=== PATIENT | female | born 1990 | race Caucasian/White ===

== ENCOUNTER 2022-11-17 22:02 | Observation (INO) | payer OTHER, SELFPAY ==
[2022-11-17] VITALS (7 sets, daily range): BP systolic 105–110; BP diastolic 64–68; PULSE 94–101; RESP 18; TEMP 36.3; BMI 28.8
--- NOTE | 2022-11-17 23:58 | PC.NURSE ---
Dr. Roca notified of PT arriving to unit with c/o falling on her left side at about 2100. PT states she feels some tenderness on the left side of her abdomen which she rates a 1 on a scale of 1-10, not tender to touch. PT does not feel contractions, no contractions per toco, and none per palpation. RH positive per PT. PT denies bleeding and leaking of any kind. Reported reactive tracing, PT marking movement, vitals WNL. Orders to monitor PT until 0100, if FHT reactive PT to be discharged.
[2022-11-18] VITALS: BP 105/69; PULSE 93
[2022-11-18 00:15] VITALS: BP 108/67; PULSE 98
[2022-11-18 00:30] VITALS: BP 109/69; PULSE 94
[2022-11-18 00:45] VITALS: BP 110/69; PULSE 92
--- NOTE | 2022-11-18 00:48 | OBADM ---
This patient, Jade Sanchez, admitted to the OB room OB Post 116 for observation. Patient/family oriented to hospital policies and general routines including ID bracelet, bed and alarms, visiting hours, pain management, procedures, bathroom and other care routines, personal items, smoking policy, room service/diet, and visiting hours. Patient/Family are encouraged to report perceived risks to care and to ask questions if they do not understand what they are told or what they should do.
--- NOTE | 2022-11-21 09:01 | PM.OBTRLD ---
OB - Triage/Final Diagnosis Visit Information Comments/Additional reasons for admission: I have assessed the risk for this patient, Jade Sanchez, and determined that she would benefit from observation care. Final Diagnosis (1) Status post fall: Code(s): Z91.81 - History of falling Status: Acute
== END 2022-11-18 01:33 | disposition home or self-care (01) ==
PROVIDERS: Admitting Provider Obstetrics & Gynecology; Visit Provider Obstetrics & Gynecology
DX: Z04.3 Encounter for examination and observation following other accident (principal); Z3A.29 29 weeks gestation of pregnancy
CPT/HCPCS: G0378; G0379

== ENCOUNTER 2022-11-23 16:20 | Outpatient (CLI) | payer OTHER, SELFPAY ==
--- NOTE | ~2022-11-23 | XR_ITS ---
EXAMINATION: XR chest 2V DATE: 11/23/2022 16:42 INDICATION: Respiratory tract congestion and cough. TECHNIQUE: Frontal and lateral views of the chest were obtained. COMPARISON: None. FINDINGS: There is no pneumonia, pleural effusion, or pneumothorax. The heart size is normal. IMPRESSION: 1. No acute cardiopulmonary disease. Reviewed, dictated and finalized at location A. [facility]
== END 2022-11-23 16:21 | disposition home or self-care (01) ==
PROVIDERS: Visit Provider Obstetrics & Gynecology
DX: R05.1 Acute cough (principal)
CPT/HCPCS: 71046

== ENCOUNTER 2022-12-14 17:47 | Outpatient (RCR) | payer OTHER, SELFPAY ==
[2022-12-14 18:37] VITALS: BP 107/71; PULSE 87
== END 2023-02-22 18:28 | disposition home or self-care (01) ==
LOC: ANHOBOP 17:47
PROVIDERS: Visit Provider Obstetrics & Gynecology
DX: O24.419 Gestational diabetes mellitus in pregnancy, unspecified control (principal); Z3A.33 33 weeks gestation of pregnancy
CPT/HCPCS: 59025

== ENCOUNTER 2023-01-08 18:36 | Outpatient (CLI) | payer OTHER, SELFPAY ==
[2023-01-08 19:14] LABS: Basophils Percent Auto 0.3 % (0.2-1.2); Eosinophils Absolute Auto 0.1 K/mm3 (0-0.3); Hematocrit 34.9 % (37.0-47.0); Hemoglobin 11.5 g/dL (12.0-15.0); Immature Granulocyte Absolute 0.05 K/mm3 (0.00-0.031); Immature Granulocyte Percent A 0.4 % (0-0.5); Lymphocytes Percent Auto 18.5 % (18.3-44.2); Mean Corpuscular Hemoglobin 29.7 pg (26-34); Mean Corpuscular Volume 90.2 fl (80-100); Mean Platelet Volume 9.7 fl (7.4-10.4); Monocytes Absolute Auto 0.7 K/mm3 (0.1-0.6); Monocytes Percent Auto 5.5 % (2.6-8.5); Neutrophils Absolute Auto 8.8 K/mm3 (1.3-6.7); Neutrophils Percent Auto 74.3 % (45.5-73.1); Platelet Count Result 291 k/mm3 (150-375); Red Blood Count 3.87 M/mm3 (4.2-5.4); White Blood Count 11.9 K/mm3 (4.5-10.0)
[2023-01-08 19:15] VITALS: BP 103/72; PULSE 111
[2023-01-08 19:25] LABS: Alanine Aminotransferase 16 U/L (6-35); Albumin Level 3.5 g/dL (3.5-5.1); Alkaline Phosphatase 180 U/L (38-126); Anion Gap 9 mmol/L (8-16); Aspartate Amino Transferase 19 U/L (14-36); Bilirubin,Total 0.4 mg/dL (0.2-1.3); Blood Urea Nitrogen 4 mg/dL (7-17); Calcium 8.8 mg/dL (8.4-10.2); Carbon Dioxide 21 mmol/L (22-30); Chloride 104 mmol/L (98-107); Estimated Glomerular Filt Rate > 60; Glucose 118 mg/dL (65-110); Potassium 3.7 mmol/L (3.4-5.0); Sodium 134 mmol/L (137-145)
[2023-01-08 19:30] VITALS: BP 108/79; PULSE 88
[2023-01-08 19:45] VITALS: BP 120/80; PULSE 81
[2023-01-08 20:00] VITALS: BP 112/72; PULSE 85
[2023-01-08 20:15] VITALS: BP 108/70; PULSE 86
[2023-01-08 20:30] VITALS: BP 115/72; PULSE 79
[2023-01-08 22:04] LABS: Appearance Urine Clear (Clear); Bilirubin Urine Negative (Negative); Blood Urine Negative (Negative); Color Urine Yellow (Yellow); Glucose Urine UA Negative (Negative); Ketones Urine Negative (Negative); Leukocyte Esterase Ur Negative LEU/UL (NEGATIVE); Nitrate Urine Negative (Negative); Protein Urine Negative (Negative); Specific Grav Ur 1.008 (1.001-1.035)
[2023-01-08 22:12] LABS: Creatinine Urine 66.5 mg/dL; Total Protein Urine Random 18 mg/dL; Ur Ttl Prot Creatinine Ratio 0.27 mg/mg (0-0.20)
[2023-01-08 22:13] LABS: Add Urine Microscopic? NO
[2023-01-08 22:33] VITALS: BMI 29.0
--- NOTE | 2023-01-08 22:34 | OBADM ---
This patient, Jade Sanchez, admitted to the OB room OB Post 115 for observation. Patient/family oriented to hospital policies and general routines including ID bracelet, bed and alarms, visiting hours, pain management, procedures, bathroom and other care routines, personal items, smoking policy, room service/diet, and visiting hours. Patient/Family are encouraged to report perceived risks to care and to ask questions if they do not understand what they are told or what they should do.
== END 2023-01-08 22:50 | disposition home or self-care (01) ==
LOC: ANHOBPP 22:47 → ANHOBOP 01-11 08:17 → ANHOBPP 01-11 08:17
PROVIDERS: Advanced Practice Midwife; Visit Provider Obstetrics & Gynecology
DX: O26.899 Other specified pregnancy related conditions, unspecified trimester (principal); R60.9 Edema, unspecified
CPT/HCPCS: 36415; 80053; 81003; 82570; 84156; 84550; 85025; 87086; 99199

== ENCOUNTER 2023-01-25 05:32 | Inpatient (IN) | payer OTHER, SELFPAY ==
[2023-01-25] VITALS (59 sets, daily range): BP systolic 84–151; BP diastolic 36–108; PULSE 48–125; RESP 12–18; TEMP 36.1–37; O2SAT 92–100; BMI 29.5
--- NOTE | 2023-01-25 06:05 | LDADM ---
This patient, Jade Sanchez, was admitted to Labor/Delivery/Recovery 120 on 01/25/23 at 05:32. Plans for labor, pain management and were discussed with patient. Patient/family oriented to hospital policies and general routines including ID bracelet, bed and alarms, visiting hours, pain management, procedures, bathroom and other care routines, personal items, smoking policy, room service/diet and guest tray routines, infant security routines, and visiting hours. Patient/Family are encouraged to report perceived risks to care and to ask questions if they do not understand what they are told or what they should do. See OBIX for further documentation.
[2023-01-25 06:07] LABS: Basophils Percent Auto 0.2 % (0.2-1.2); Eosinophils Absolute Auto 0.1 K/mm3 (0-0.3); Eosinophils Percent Auto 1.1 % (0-4.4); Hematocrit 33.4 % (37.0-47.0); Hemoglobin 10.8 g/dL (12.0-15.0); Immature Granulocyte Absolute 0.06 K/mm3 (0.00-0.031); Immature Granulocyte Percent A 0.6 % (0-0.5); Lymphocytes Absolute Auto 2.02 K/mm3 (0.9-3.2); Lymphocytes Percent Auto 19.1 % (18.3-44.2); Mean Corpuscular HGB Conc 32.3 g/dl (32-36); Mean Corpuscular Hemoglobin 28.8 pg (26-34); Mean Corpuscular Volume 89.1 fl (80-100); Mean Platelet Volume 9.9 fl (7.4-10.4); Monocytes Absolute Auto 0.8 K/mm3 (0.1-0.6); Monocytes Percent Auto 7.4 % (2.6-8.5); Neutrophils Absolute Auto 7.6 K/mm3 (1.3-6.7); Neutrophils Percent Auto 71.6 % (45.5-73.1); Platelet Count Result 253 k/mm3 (150-375); Red Blood Count 3.75 M/mm3 (4.2-5.4); Red Cell Distribution Width 13.4 % (11.5-14.5); White Blood Count 10.6 K/mm3 (4.5-10.0)
[2023-01-25] MEDS: LACTATED RINGERS 1,000 ML 125 ML IV CONT (06:19)
--- NOTE | 2023-01-25 06:55 | PC.NURSE ---
Talked to Dr. Aguilar regarding patient eating at 0300. Orders to postpone C/S at 0900. Dr. Roca made aware of schedule change.
--- NOTE | 2023-01-25 07:12 | WPDANESEPPF ---
Anes - Initial Pre Proc Eval Procedure: Operation Date: 01/25/23 07:30 Proposed Procedures p Primary Section - Brenda Roca MD Date/Time: 01/25/23 07:12 Surgeon: Brenda Roca MD Pre Op Diagnosis: C/S Patient Data Age: 32 Gender: F Height: 1.68 m Weight: 83 kg Last Vital Signs Pulse 72 01/25/23 06:46 BP 119/76 01/25/23 06:46 O2 Del Method Room Air 01/25/23 06:05 Allergies Allergy/AdvReac Type Severity Reaction Status Date / Time No Known Allergies Allergy Unverified 01/25/23 06:03 Home Medications Medication Instructions Recorded Confirmed Type docosahexaenoic acid 200 mg 1 mg PO DAILY 06/23/22 01/25/23 History capsule ( DHA) valacyclovir 500 mg tablet 500 mg PO DAILY 11/17/22 01/25/23 History Laboratory Tests 01/25/23 05:59 WBC 10.6 H K/mm3 (4.5-10.0) RBC 3.75 L M/mm3 (4.2-5.4) Hgb 10.8 L g/dL (12.0-15.0) Hct 33.4 L % (37.0-47.0) MCV 89.1 fl (80-100) MCH 28.8 pg (26-34) MCHC 32.3 g/dl (32-36) RDW 13.4 % (11.5-14.5) Plt Count 253 k/mm3 (150-375) MPV 9.9 fl (7.4-10.4) Immature Gran % (Auto) 0.6 H % (0-0.5) Neut % (Auto) 71.6 % (45.5-73.1) Lymph % (Auto) 19.1 % (18.3-44.2) [place] % (Auto) 7.4 % (2.6-8.5) Eos % (Auto) 1.1 % (0-4.4) Baso % (Auto) 0.2 % (0.2-1.2) Lymph # (Auto) 2.02 K/mm3 (0.9-3.2) [place] # (Auto) 0.8 H K/mm3 (0.1-0.6) Eos # (Auto) 0.1 K/mm3 (0-0.3) Baso # (Auto) 0.0 K/mm3 (0.0-0.1) Abs Immat Gran (auto) 0.06 H K/mm3 (0.00-0.031) Absolute Neuts (auto) 7.6 H K/mm3 (1.3-6.7) Absolute Nucleated RBC 0.0 K/mm3 (0.0-0.012) Nucleated RBC % 0.0 % (0.0-0.2) RPR Pending Patient hx anesthesia problems: none Family hx anesthesia problems: none Results Review: All pre-operative results and documents have been reviewed as part of the pre-operative evaluation. [facility] Past Medical History Medical History (Updated 11/21/22 @ 09:01 by Brenda Roca MD) Multiple sclerosis Family History Family History (Updated 01/20/23 @ 15:19 by Connie Crowe RN) Father Vitiligo Cancer Went to agricultural equipment salesperson and had a tumor removed from neck and follow up with chemotherapy. Thyroid disease Grandparent Heart disease Parkinsons Cerebrovascular accident Mother Graves disease Social History Social History (Updated 06/23/22 @ 14:25 by Malgorzata Esteban CMA) Smoking status: Current every day smoker Tobacco type: cigarettes Alcohol intake: former Substance use: current Last use: 01/19/23 Spiritual care concerns: No Anes - Eval Final PreProcedure Day of Procedure 01/25/23 07:12 Patient weight: overweight Heart: regular rate and rhythm Lungs: clear to auscultation and normal air movement Airway: Mallampati scale class II Neurological: alert and oriented Last oral intake: >/= 8 hours ASA classification: III Emergent: no Anesthetic plan: proceed Anesthesia type and monitoring: regional spinal Results Review: All pre-operative results and documents have been reviewed as part of the pre-operative evaluation. Informed Consent: The patient's anesthetic plan and its attendant risks and benefits were discussed with the patient/family/POA. Questions were solicited and answers provided to the satisfaction of the patient/family/POA.
--- NOTE | 2023-01-25 07:13 | PM.IMHP ---
H&P: HPI History of Present Illness Date/Time: 01/25/23 07:13 Chief Complaint: Zelalem is a 32yo G1 at 39.1 for primary CS. She has genital herpes and had an outbreak about 3 weeks ago and decided that she wanted to avoid the risks of vaginal delivery with herpes, however small. She also has multiple sclerosis which has been quiescent during . Her has been otherwise uncomplicated. Review of Systems Review of Systems: All systems reviewed & are unremarkable except as noted in HPI and below PMFSH Past Medical History Medical History (Updated 01/25/23 @ 07:19 by Brenda Roca MD) Multiple sclerosis Family History Family History (Updated 01/20/23 @ 15:19 by Connie Crowe RN) Father Vitiligo Cancer Went to learning center instructor and had a tumor removed from neck and follow up with chemotherapy. Thyroid disease Grandparent Heart disease Parkinsons Cerebrovascular accident Mother Graves disease Social History Social History (Updated 06/23/22 @ 14:25 by Malgorzata Esteban CMA) Smoking status: Current every day smoker Tobacco type: cigarettes Alcohol intake: former Substance use: current Last use: 01/19/23 Spiritual care concerns: No Meds Home Medications and Allergies Home Medications Medication Instructions Recorded Confirmed Type docosahexaenoic acid 200 mg 1 mg PO DAILY 06/23/22 01/25/23 History capsule ( DHA) valacyclovir 500 mg tablet 500 mg PO DAILY 11/17/22 01/25/23 History Allergies Allergy/AdvReac Type Severity Reaction Status Date / Time No Known Allergies Allergy Unverified 01/25/23 06:03 Vital Signs Vital Signs - 24 hr 01/25/23 05:50 01/25/23 06:01 01/25/23 06:16 Pulse Rate 95 98 85 Blood Pressure 109/76 100/82 92/71 L Oxygen Delivery 01/25/23 06:31 01/25/23 06:46 01/25/23 06:05 Pulse Rate 76 72 Blood Pressure 108/77 119/76 Oxygen Delivery Room Air Exam Const: General: no acute distress Resp: Effort & Inspection: normal respiratory effort Auscultation: clear to auscultation bilaterally Cardio: Rate: regular rate Rhythm: regular rhythm GI: GI Palp: Yes Soft to palpation Extrem: General: normal to inspection H&P: Results Labs Labs: Short CBC 01/25/23 Range/Units 05:59 WBC 10.6 H (4.5-10.0) K/mm3 Hgb 10.8 L (12.0-15.0) g/dL Hct 33.4 L (37.0-47.0) % Plt Count 253 (150-375) k/mm3 Assessment and Plan Assessment and plan (1) Genital herpes affecting : Code(s): O98.319 - Other infections with a predominantly sexual mode of transmission complicating , unspecified trimester; A60.09 - Herpesviral infection of other urogenital tract Status: Acute (2) Multiple sclerosis: Code(s): G35 - Multiple sclerosis Status: Acute Plan Consented for primary CS for genital herpes. Discussed RBA, questions answered. Will proceed. Following with neuro for MS FHT category 1.
--- NOTE | 2023-01-25 07:20 | WPDHPUPDATE1 ---
History and Physical Update Update Date/Time: 01/25/23 07:20 History and Physical has been reviewed, including an updated exam of the patient. There are NO changes in the patient's condition. Risks, benefits, and alternatives have been discussed and questions answered. Patient agrees to proceed with procedure.
[2023-01-25] MEDS: ceFAZolin 2 GM/D5W 50 ML 2 GM/50 ML BAG IVPB (07:28)
[2023-01-25 07:40] LABS: Amphetamine Screen Urine Negative (Negative); Barbiturate Screen Urine Negative (Negative); Benzodiazepines Screen Urine Negative (Negative); Cannabinoid Screen Urine Positive (Negative); Cocaine Screen Urine Negative (Negative); Methadone Screen Urine Negative (Negative); Opiate Screen Urine Negative (Negative); Phencyclidine Screen Urine Negative (Negative)
[2023-01-25] MEDS: KETOROLAC 30 MG/ML VIAL (*BKC) IV PUSH (08:10)
--- NOTE | 2023-01-25 08:39 | P.PCNOB_ITS ---
OB - Delivery Note Procedure Delivery date: 01/25/23 Procedure: Procedures Operation Date: 01/25/23 07:30 <No data on this case meets the specified criteria> primary low transverse section Events: Other (genital herpes) Route of delivery: Prior to decision for section, ACOG/SMFM labor guidelines were considered and discussed with the patient and staff. Decision made to proceed with the section.: Yes Specimen: Yes (placenta) Quantitative Blood Loss (ml): 450 Anesthesia type: Spinal Disposition: Floor Complications: none Narrative: Pre op Dx: IUP 39.1, genital herpes with recent outbreak Post op Dx: same The patient was taken to the OR and received spinal anesthesia. She was placed in dorsal supine position with left lateral tilt. SCDs and lawton were placed. She was prepped and draped in the normal sterile fashion. A Pfannensteil skin incision was made and carried through to the underlying layer of fascia. The fascia was incised in the midline and then extended laterally using Bey scissors. The muscles were in the midline and the peritoneum was entered bluntly. The peritoneal incision was extended inferiorly and superiorly with care to avoid the bladder. The bladder blade was then inserted, the vesicouterine peritoneum was grasped, incised with Metzenbaum scissors, and a bladder flap created. The bladder blade was reinserted. A low transverse uterine incision was made with a scalpel and extended bluntly. AROM was performed and fluid was noted to be clear. The head was delivered, followed by the remainder of the baby. The baby's oropharynx was suctioned. After 30 seconds, the cord was clamped and cut and the infant was handed off. Cord blood was obtained and the placenta was then removed manually. The uterus was exteriorized. A moist lap sponge was used to curette the endometrium. The uterine incision was then closed with one layer of 0-Vicryl in a running, locking fashion. Good hemostasis was noted. The posterior cul de sac was irrigated with normal saline and cleared of all clot and debris. The uterus was returned to the abdomen. Both lateral gutters were then irrigated. The rectus muscles were inspected and found to be hemostatic. The fascia was reapproximated using 0-Vicryl in running fashion. The subcutaneous tissue was irrigated with normal saline and made hemostatic with Bovie electrocautery. The subcutaneous tissue was reapproximated with a layer of running 2-0 plain gut. The skin was then closed with 4-0 Vicryl in a subcuticular fashion. Steri str ips and a bandage were applied. The uterus was evacuated. The patient tolerated the procedure very well. All counts were correct. She was taken to the recovery room in good condition. [place] Baby Date of : 01/25/23 Time of : 08:00 Weeks of gestation at delivery: 39 Infant gender: Male Weight (pounds): 7 Weight (ounces): 15 presentation: vertex Placenta delivery description: Manual Removal Cord Vessel Description: 3 Vessels and Delayed Cord Clamping score one minute: 8 score five minutes: 9
[2023-01-25] MEDS: OXYTOCIN 30 UNITS/NS 500 ML 30 UNITS/500 ML BAG 125 UNITS IV CONT (09:38)
--- NOTE | 2023-01-25 13:57 | PC.NURSE ---
[id number] Introductions were made, then consulted with patient to assess needs related to . Mother is demonstrating to the right breast using cross cradle. Mother states she will be only for a week or two, then will be going back on her MS medication that she states cannot be used with . Mother voiced understanding of information and will call if there is a request for assistance. Reported to the primary RN.
[2023-01-25] MEDS: DEXTROSE 5%/0.45% SOD CHL 1,000 ML 125 ML IV CONT (14:01)
[2023-01-25] MEDS: valACYclovir HCL 500 MG TABLET PO (14:01)
--- NOTE | 2023-01-25 14:29 | OBPPTRN ---
1102-Patient transferred to post room #281 via stretcher. Support person present. Oriented to unit, room, information board, rooming in, admission packet and security measures. Patient verbalizes understanding.
[2023-01-25] MEDS: DOCUSATE SODIUM 100 MG CAPSULE PO (17:53)
[2023-01-26 00:13] VITALS: BP 112/67; PULSE 85; RESP 18; TEMP 36.6; O2SAT 97
[2023-01-26] MEDS: KETOROLAC 30 MG/ML VIAL (*BKC) IV PUSH (00:41)
[2023-01-26 03:45] VITALS: BP 114/67; PULSE 67; RESP 18; TEMP 36.6; O2SAT 98
[2023-01-26 05:00] LABS: Basophils Percent Auto 0.3 % (0.2-1.2); Eosinophils Absolute Auto 0.1 K/mm3 (0-0.3); Eosinophils Percent Auto 0.7 % (0-4.4); Hematocrit 29.4 % (37.0-47.0); Hemoglobin 9.5 g/dL (12.0-15.0); Immature Granulocyte Absolute 0.08 K/mm3 (0.00-0.031); Immature Granulocyte Percent A 0.5 % (0-0.5); Lymphocytes Absolute Auto 2.83 K/mm3 (0.9-3.2); Lymphocytes Percent Auto 18.9 % (18.3-44.2); Mean Corpuscular HGB Conc 32.3 g/dl (32-36); Mean Corpuscular Hemoglobin 29.3 pg (26-34); Mean Corpuscular Volume 90.7 fl (80-100); Mean Platelet Volume 10.6 fl (7.4-10.4); Monocytes Absolute Auto 1.1 K/mm3 (0.1-0.6); Monocytes Percent Auto 7.6 % (2.6-8.5); Neutrophils Absolute Auto 10.8 K/mm3 (1.3-6.7); Platelet Count Result 232 k/mm3 (150-375); Red Blood Count 3.24 M/mm3 (4.2-5.4); Red Cell Distribution Width 13.5 % (11.5-14.5)
[2023-01-26 07:46] LABS: Rapid Plasma Reagin Non-Reactive (NonReactive)
[2023-01-26 08:06] VITALS: BP 127/71; PULSE 73; RESP 17; O2SAT 100
--- NOTE | 2023-01-26 08:06 | WPDANLDNPN2 ---
Anes-Prog Note L&D-Neuraxial Date/Time: 01/26/23 08:06 Opiod-related complaints: none Patient feedback: Patient satisfied with post-operative pain management.
--- NOTE | 2023-01-26 08:10 | WPDANLDPN2 ---
Anes-Prog Note L&D Date/Time: 01/26/23 08:10 Neuro status: Neuro function grossly intact. Cardiovascular status: normal Respiratory status: normal Airway patency: baseline Mental status: baseline Post-Op hydration status: normal Vital Signs: Last Vital Signs Temp 36.6 C 01/26/23 03:45 Pulse 67 01/26/23 03:45 Resp 18 01/26/23 03:45 BP 114/67 01/26/23 03:45 Pulse Ox 98 01/26/23 03:45 O2 Del Method Room Air 01/26/23 03:45 Pain score (VAS): 0 I/O: Intake & Output 01/25/23 01/26/23 01/26/23 23:59 07:59 15:59 Intake Total 1353 2000 Output Total 1300 1850 Balance 53 150 Post-procedural complaints: none Patient feedback: Patient satisfied with anesthetic care.
--- NOTE | 2023-01-26 08:20 | PM.OBPNVD ---
OB - PN: Subj Subjective Date/time seen: 01/26/23 08:20 Patient comments: no complaints and pain well controlled baby status: doing well [place] feeding status: exclusively bottle feeding Narrative: POD 1 from primary CS. Doing well. Normal lochia. Eating, ambulating, lawton out. OB - PN: Obj Data Labs 01/26/23 03:41 Labs: Laboratory Results - last 24 hr 01/25/23 01/26/23 05:59 03:41 WBC 15.0 H RBC 3.24 L Hgb 9.5 L Hct 29.4 L MCV 90.7 MCH 29.3 MCHC 32.3 RDW 13.5 Plt Count 232 MPV 10.6 H Immature Gran % (Auto) 0.5 Neut % (Auto) 72.0 Lymph % (Auto) 18.9 [place] % (Auto) 7.6 Eos % (Auto) 0.7 Baso % (Auto) 0.3 Lymph # (Auto) 2.83 [place] # (Auto) 1.1 H Eos # (Auto) 0.1 Baso # (Auto) 0.0 Abs Immat Gran (auto) 0.08 H Absolute Neuts (auto) 10.8 H Absolute Nucleated RBC 0.0 Nucleated RBC % 0.0 RPR Non-reactive OB - PN A/P Plan day: 1 Plan: routine care Comments: anemia- IV iron x1 doing well. Time Spent With Patient Time: Total time spent is greater than 50% in coordination of care (as documented) at patient's floor/unit and/or counseling patient: Exam Narrative: NAD abdomen soft, appropriately tender, incision bandaged Extremities nontender with 1+ edema
[2023-01-26] MEDS: POLYSACCHARIDE IRON COMPLEX 150 MG CAPSULE PO ×2 (09:13→15:15)
[2023-01-26] MEDS: MULTIVIT/MIN/PREN/FOL AC/IRON TABLET 1 TAB PO (09:14)
[2023-01-26] MEDS: valACYclovir HCL 500 MG TABLET PO (09:14)
[2023-01-26] MEDS: DOCUSATE SODIUM 100 MG CAPSULE PO ×2 (09:14→15:15)
[2023-01-26] MEDS: IBUPROFEN 600 MG TABLET PO ×3 (09:15→22:44)
[2023-01-26] MEDS: HYDROcodone/acetaminophen (*CRX) 5-325 MG TABLET 1 TAB PO ×2 (09:17→15:15)
[2023-01-26] MEDS: IRON SUCROSE COMPLEX 200 MG in SODIUM CHLORIDE 0.9% IV 50 ML 120 MG IVPB (09:50)
--- NOTE | 2023-01-26 15:48 | PC.NURSE ---
Pt. out on pass to visit baby at [facility]
--- NOTE | 2023-01-26 22:24 | PC.NURSE ---
Patient returned from [facility] to [facility] to see infant.
[2023-01-26 22:30] VITALS: BP 118/69; PULSE 90; RESP 20; TEMP 36.7
[2023-01-26] MEDS: HYDROcodone/acetaminophen (*CRX) 10-325 MG TABLET 1 TAB PO (22:44)
[2023-01-27] MEDS: IBUPROFEN 600 MG TABLET PO (05:18)
[2023-01-27] MEDS: HYDROcodone/acetaminophen (*CRX) 10-325 MG TABLET 1 TAB PO ×2 (05:20→09:12)
[2023-01-27 07:02] VITALS: BP 122/75; PULSE 60; RESP 16; TEMP 36.7; O2SAT 99
--- NOTE | 2023-01-27 07:37 | PM.OBPNVD ---
OB - PN: Subj Subjective Date/time seen: 01/27/23 07:37 Patient comments: no complaints and pain well controlled baby status: NICU (transferred for oral lesions, concern for HSV) [place] feeding status: breast and bottle feeding OB - PN: Obj Data Labs 01/26/23 03:41 Labs: Laboratory Results - last 24 hr 01/25/23 05:59 RPR Non-reactive OB - PN A/P Plan day: 2 Plan: discharge home Time Spent With Patient Time: Total time spent is greater than 50% in coordination of care (as documented) at patient's floor/unit and/or counseling patient: Exam Narrative: NAD abdomen soft, appropriately tender, incision CDI Extremities nontender with 1+ edema
--- NOTE | 2023-01-27 07:42 | PM.OBDSVD ---
DS: Admitting Diagnosis Discharge Date 01/27/23 Admitting Diagnosis IUP 39w, genital herpes DS: Discharge Diagnosis Discharge Diagnosis (1) Genital herpes affecting : Code(s): O98.319 - Other infections with a predominantly sexual mode of transmission complicating , unspecified trimester; A60.09 - Herpesviral infection of other urogenital tract Status: Acute (2) delivery delivered: Code(s): O82 - Encounter for delivery without indication Status: Acute OB - DS: Summary Hospital Course Hospital Course: Zelalem was admitted for a primary CS for genital herpes. Her course was uncomplicated. Baby [facility] to [facility] for oral lesions concerning for HSV and so she was discharged on POD 2 to be with baby. OB Procedures : Ultrasound OB Procedures Intrapartum: OB Procedures: : None Peripartum Data Infant Delivery Method: Section Procedures: Procedures Operation Date: 01/25/23 07:30 Actual Procedure Side Surgeon p Section Not Applicable Brenda Roca MD complications: none Status at Discharge Functional status at discharge: independent ambulation Time Spent with Patient Time attestation: Total time spent providing and/or coordinating discharge services: Exam Narrative: NAD abdomen soft, appropriately tender, incision CDI DS: Data Data Completed and Pending Labs on day of discharge: Labs from last 24 hours 01/25/23 05:59 RPR Non-reactive Discharge Plan Discharge Attending physician on discharge: Brenda Roca Discharging Clinician: Brenda Roca Anticipated Discharge Date/Time: 01/27/23 07:39 Patient Disposition: Home, Self-Care Activity: may shower, may drive after 2 weeks and pelvic rest Diet: regular Patient Instructions: Antibiotic Form Stand Alone Forms: General Discharge Information Follow-up/Referrals: Brenda Roca MD [Physician] - 1 Week Discharge Medications: New oxycodone-acetaminophen [Percocet] 5-325 mg tablet 1 tablet PO Q6H PRN (Reason: pain) Qty: 30 0RF docusate sodium 100 mg Capsule 100 mg PO BID PRN (Reason: constipation) Qty: 60 0RF ibuprofen 600 mg Tablet 600 mg PO Q6H PRN (Reason: Cramping) Qty: 60 0RF Continued DHA 200 mg capsule 1 mg PO DAILY valacyclovir 500 mg tablet 500 mg PO DAILY Date of admission: 01/25/23 05:32 Primary Care Provider: PHYSICIAN,[employer] Admitting Provider: Brenda Roca Attending physician on admission: Brenda Roca Condition: Stable
[2023-01-27] MEDS: valACYclovir HCL 500 MG TABLET PO (07:52)
[2023-01-27] MEDS: DOCUSATE SODIUM 100 MG CAPSULE PO (07:52)
[2023-01-27] MEDS: MULTIVIT/MIN/PREN/FOL AC/IRON TABLET 1 TAB PO (07:52)
[2023-01-27] MEDS: POLYSACCHARIDE IRON COMPLEX 150 MG CAPSULE PO (07:52)
--- NOTE | 2023-01-27 08:00 | PC.NURSE ---
Patient to view the discharge video Mother & Baby Care, The First Two Weeks online. Patient was given the opportunity and encouraged to ask questions. Patient verbalized understanding of information shared and has been given the mother/baby guide for home reference.
--- NOTE | 2023-01-27 08:39 | PC.NURSE ---
On 01/27/23, the student, Sharonda Zapata, provided care and completed [facility] documentation on this patient. I have reviewed the student's documentation and agree with the findings.
== END 2023-01-27 09:15 | disposition home or self-care (01) | DRG 540 ==
LOC: ANHLDR 05:36 → ANHOB2 11:07
PROVIDERS: Admitting Provider Obstetrics & Gynecology; Visit Provider Obstetrics & Gynecology
PROC: 10D00Z1 Extraction of Products of Conception, Low, Open Approach (ICD-10-PCS; CPT 59514; principal; 2023-01-25 07:30)
DX: O98.32 Other infections with a predominantly sexual mode of transmission complicating childbirth (principal); Z37.0 Single live birth; Z3A.39 39 weeks gestation of pregnancy; A60.09 Herpesviral infection of other urogenital tract
CPT/HCPCS: 36415; 80307; 85025; 86592; 86850; 86900; 86901; A9270; J0131; J0690; J1756; J1885; J2274; J2370; J2590; J7120

== ENCOUNTER 2023-04-18 13:05 | Emergency (ER) | payer OTHER, SELFPAY ==
--- NOTE | ~2023-04-18 | CT_ITS ---
EXAMINATION: CT abdomen pelvis w con DATE: 04/18/2023 14:17 INDICATION: Abdominal pain TECHNIQUE: Computed tomography (CT) of the abdomen and pelvis was performed with 100 cc Omnipaque 350 intravenous contrast. The dose-length product was 480.15 mGy-cm. Automated exposure control and iter ative reconstruction technique were employed. COMPARISON: No prior studies for comparison. FINDINGS: Lung bases are unremarkable. Heart size normal. No significant pleural or pericardial effus ion. No significant vascular abnormality. No lymphadenopathy. Nonobstructive bowel pattern. The liver , spleen, pancreas, adrenal glands and kidneys are unremarkable. No free air or free fluid. Gallbladd er is present. Focal fatty infiltration of the liver at the falciform ligament. No acute osseous abno rmality. IMPRESSION: 1. No acute abdominal abnormality. Reviewed, dictated and finalized at location A.
[2023-04-18 13:15] VITALS: BP 116/82; PULSE 75; RESP 18; TEMP 36.4; O2SAT 100
[2023-04-18 13:37] LABS: Basophils Percent Auto 0.4 % (0.2-1.2); Eosinophils Absolute Auto 0.2 K/mm3 (0-0.3); Eosinophils Percent Auto 2.6 % (0-4.4); Hematocrit 42.8 % (37.0-47.0); Hemoglobin 14.2 g/dL (12.0-15.0); Immature Granulocyte Absolute 0.02 K/mm3 (0.00-0.031); Immature Granulocyte Percent A 0.2 % (0-0.5); Lymphocytes Absolute Auto 2.59 K/mm3 (0.9-3.2); Lymphocytes Percent Auto 27.9 % (18.3-44.2); Mean Corpuscular HGB Conc 33.2 g/dl (32-36); Mean Corpuscular Hemoglobin 30.1 pg (26-34); Mean Corpuscular Volume 90.9 fl (80-100); Mean Platelet Volume 8.8 fl (7.4-10.4); Monocytes Absolute Auto 0.7 K/mm3 (0.1-0.6); Monocytes Percent Auto 7.3 % (2.6-8.5); Neutrophils Absolute Auto 5.7 K/mm3 (1.3-6.7); Neutrophils Percent Auto 61.6 % (45.5-73.1); Platelet Count Result 383 k/mm3 (150-375); Red Blood Count 4.71 M/mm3 (4.2-5.4); Red Cell Distribution Width 13.8 % (11.5-14.5); White Blood Count 9.3 K/mm3 (4.5-10.0)
--- NOTE | 2023-04-18 13:42 | ED.ABDPAIN ---
HPI - Abdominal Pain General Chief Complaint: Nausea/Vomiting/Diarrhea Stated Complaint: abd pain/back pain Time Seen by Provider: 04/18/23 13:23 Source: patient Mode of arrival: ambulatory Limitations: no limitations History of Present Illness HPI narrative: 32-year-old female history of MS 3 months presents today with complaints of epigastric pain radiating around to her back for 4 to 5 days. Patient states she had grilled cheese and a hamburger then started with abdominal pain vomiting and diarrhea shortly after. Initially she had felt better but has continued with pain for the last 4 to 5 days. Able to tolerate fluids and oatmeal. When she tried to eat anything heavier she did end up with increasing pain. Denies any fevers, body aches, chills. Currently not on any medications for the MS. Patient currently is not breast-feeding either. Related Data Home Medications Medication Instructions Recorded Confirmed docosahexaenoic acid 200 mg 1 mg PO DAILY 06/23/22 01/25/23 capsule ( DHA) valacyclovir 500 mg tablet 500 mg PO DAILY 11/17/22 01/25/23 Allergies Allergy/AdvReac Type Severity Reaction Status Date / Time No Known Allergies Allergy Verified 04/18/23 13:06 Review of Systems Review of Systems: All systems reviewed & are unremarkable except as noted in HPI and below ENT: Reports as per HPI Cardiovascular: Cardiovascular: Reports as per HPI Respiratory: Respiratory: Reports as per HPI Gastrointestinal: Gastrointestinal: Reports as per HPI Musculoskeletal: Musculoskeletal: Reports as per HPI Integumentary/Breasts: Skin/Breast: Reports as per HPI Neurologic: Reports as per HPI Psychiatric: Psychiatric: Reports as per HPI PMFSH Past Medical History Medical History (Updated 04/18/23 @ 15:16 by Berenice Benton APRN) Multiple sclerosis Family History Family History (Updated 01/20/23 @ 15:19 by Connie Crowe RN) Father Vitiligo Cancer Went to tank shop supervisor and had a tumor removed from neck and follow up with chemotherapy. Thyroid disease Grandparent Heart disease Parkinsons Cerebrovascular accident Mother Graves disease Social History Social History (Updated 06/23/22 @ 14:25 by Malgorzata Esteban CMA) Smoking status: Current every day smoker Tobacco type: cigarettes Alcohol intake: former Substance use: current Last use: 01/19/23 Spiritual care concerns: No Exam Const: General: cooperative, healthy appearing, comfortable, no acute distress and well developed Orientation/consciousness: patient oriented x3 HENMT: Head: normal to inspection Eyes: General: appearance normal, both eyes and all related structures Resp: Effort & Inspection: normal respiratory effort and able to speak in complete sentences Auscultation: clear to auscultation bilaterally Cardio: Rate: regular rate Rhythm: regular rhythm Heart sounds: S1 normal heart sound present and S2 normal heart sound present GI: Inspection: normal to inspection GI Palp: Yes abdominal tenderness (upper abdomen), Yes Soft to palpation, Yes No hepatosplenomegaly present and Yes Other GI palpation findings present (+ levine sign) Neuro: General: patient oriented x3 Course Course Emergency Course: Patient with noted improvement after Toradol injection. Currently without nausea vomiting or pain. Discussed labs and imaging. Plan discharge home with follow-up with primary care provider to return with any new or worsening concerns. Patient in agreement with plan of care. Vital Signs Vital signs: Vital Signs Temperature 97.5 F L 04/18/23 13:15 Pulse Rate 75 04/18/23 13:15 Respiratory Rate 18 04/18/23 13:15 Blood Pressure 116/82 04/18/23 13:15 Pulse Oximetry 100 04/18/23 13:15 Oxygen Delivery Room Air 04/18/23 13:15 Temperature 97.5 F L 04/18/23 13:15 Pulse Rate 74 04/18/23 15:29 Respiratory Rate 18 04/18/23 15:29 Blood Pressure 111/75
[2023-04-18 13:47] LABS: Alanine Aminotransferase 35 U/L (6-35); Albumin Level 4.9 g/dL (3.5-5.1); Alkaline Phosphatase 74 U/L (38-126); Anion Gap 12 mmol/L (8-16); Aspartate Amino Transferase 25 U/L (14-36); Bilirubin,Total 0.5 mg/dL (0.2-1.3); Blood Urea Nitrogen 9 mg/dL (7-17); Calcium 9.3 mg/dL (8.4-10.2); Carbon Dioxide 25 mmol/L (22-30); Chloride 101 mmol/L (98-107); Estimated CRCL calculation 127 ml/min; Estimated Glomerular Filt Rate > 60; Glucose 105 mg/dL (65-110); Lipase 59 U/L (23-300); Potassium 3.5 mmol/L (3.4-5.0); Sodium 138 mmol/L (137-145)
[2023-04-18] MEDS: PANTOPRAZOLE SODIUM IV 40 MG VIAL IV PUSH (13:49)
[2023-04-18] MEDS: KETOROLAC 30 MG/ML VIAL (*BKC) IV PUSH (13:49)
[2023-04-18] MEDS: ONDANSETRON INJ 4 MG/2 ML VIAL IV PUSH (13:49)
[2023-04-18] MEDS: SODIUM CHLORIDE 0.9% IV 2,000 ML 999 ML IV CONT (13:50)
[2023-04-18 14:13] LABS: Appearance Urine Clear (Clear); Bilirubin Urine Negative (Negative); Blood Urine Negative (Negative); Color Urine Yellow (Yellow); Glucose Urine UA Negative (Negative); Ketones Urine Negative (Negative); Leukocyte Esterase Ur Negative LEU/UL (Negative); Nitrate Urine Negative (Negative); Protein Urine Negative (Negative); Specific Grav Ur 1.002 (1.001-1.035); Urobilinogen Urine 0.2 mg/dL (<2.0); pH Urine 6.5 (5.0-9.0)
[2023-04-18 14:22] LABS: Add Urine Microscopic? NO
[2023-04-18 15:29] VITALS: BP 111/75; PULSE 74; RESP 18; O2SAT 100
== END 2023-04-18 15:29 | disposition home or self-care (01) ==
PROVIDERS: Emergency Medicine; Emergency Provider Nurse Practitioner Family
DX: R10.13 Epigastric pain (principal); G35 Multiple sclerosis; F17.210 Nicotine dependence, cigarettes, uncomplicated
CPT/HCPCS: 36415; 74177; 80053; 81003; 81025; 83690; 85025; 96361; 96374; 96375; 99284; C9113; J1885; J2405; J7030; Q9967

== ENCOUNTER 2023-06-04 18:41 | Emergency (ER) | payer OTHER, SELFPAY ==
[2023-06-04 19:04] VITALS: BP 104/77; PULSE 92; RESP 18; TEMP 36.4; O2SAT 100
[2023-06-04 20:37] VITALS: BP 106/70; PULSE 82; RESP 15; O2SAT 99
--- NOTE | 2023-06-04 21:13 | ED.GENADULT ---
HPI - General Adult General Chief complaint: Unspecified Stated complaint: multiple sclerosis Time Seen by Provider: 06/04/23 20:21 Source: patient Mode of arrival: ambulatory Limitations: no limitations History of Present Illness HPI narrative: This is a 32-year-old female with PMH of MS who presents to the ED with multiple complaints. Patient reports she was diagnosed with MS about 5 years ago and had her baby about 4 months ago. She reports ever since having her baby she has been having increased electric shock pains and intermittent weakness of the left lower extremity. The symptoms she has been having for quite some time however she is starting to have some new symptoms including pain with extraocular movements. Denies loss of vision or double vision. she does note a little bit of a headache associated with this. Denies any LOC or head injuries. She states she is able to ambulate but has occasional falls at home. Denies any further complaints. Related Data Home Medications Medication Instructions Recorded Confirmed docosahexaenoic acid 200 mg 1 mg PO DAILY 06/23/22 01/25/23 capsule ( DHA) valacyclovir 500 mg tablet 500 mg PO DAILY 11/17/22 01/25/23 Allergies Allergy/AdvReac Type Severity Reaction Status Date / Time No Known Allergies Allergy Verified 06/04/23 18:42 Review of Systems Review of Systems: All systems as dictated in [facility] Past Medical History Medical History (Updated 06/04/23 @ 22:36 by Eusebio Quezada PA-C) Multiple sclerosis Family History Family History (Updated 01/20/23 @ 15:19 by Connie Crowe RN) Father Vitiligo Cancer Went to belt tender and had a tumor removed from neck and follow up with chemotherapy. Thyroid disease Grandparent Heart disease Parkinsons Cerebrovascular accident Mother Graves disease Social History Social History (Updated 06/23/22 @ 14:25 by Malgorzata Esteban CMA) Smoking status: Current every day smoker Tobacco type: cigarettes Alcohol intake: former Substance use: current Last use: 01/19/23 Spiritual care concerns: No Exam Narrative: GENERAL: Well-appearing, well-nourished, and in no acute distress. HEAD: Normocephalic, atraumatic. EYES: PERRLA. She has pain with multiple extraocular movements. Vision intact. ENT: Nares clear, no rhinorrhea or epistaxis. Mucous membranes moist. Oropharynx without tonsillar hypertrophy exudate or other lesions. NECK: Supple. No adenopathy or masses. CHEST: No respiratory distress. Clear to auscultation. No wheezes rales or rhonchi HEART: Regular rate and rhythm. No murmur heard. Normal peripheral pulses. ABDOMEN: Soft, nontender, nondistended, normal active bowel sounds. MSK: Normal range of motion. No edema. SKIN: Warm, dry, no rash. NEURO: Alert and oriented x3. 5 out of 5 sensation in the upper and lower extremities. 4/5 strength with plantarflexion of the left foot. Otherwise strength is fully intact throughout the extremities. No other focal deficits. PSYCH: Normal mood and affect. Course Course Emergency Course: Consult Dr. Ospina: She agrees with the plan for 1000 mg of Solu-Medrol for this potential MS flare. Recommends giving 500 tonight and 500 in the morning. Agrees the patient should probably get an MRI so admission is recommended. Discussed the plan with the patient, however she does not want to be admitted to the hospital. She states that she has to get home to take care of her 4-month-old child and that there is no one else who can help with this tonight. Vital Signs Vital signs: Vital Signs Temperature 97.6 F 06/04/23 19:04 Pulse Rate 92 06/04/23 19:04 Respiratory Rate 18 06/04/23 19:04 Blood Pressure 104/77 06/04/23 19:04 Pulse Oximetry 100 06/04/23 19:04 Oxygen Delivery Room Air 06/04/23 19:04 Temperature 97.6 F 06/04/23 19:04 Pulse Rate 86 06/04/23 22:48 Respiratory Rate 16 06/04/23 22:48
[2023-06-04 21:54] LABS: Basophils Percent Auto 0.4 % (0.2-1.2); Eosinophils Absolute Auto 0.3 K/mm3 (0-0.3); Eosinophils Percent Auto 2.8 % (0-4.4); Hematocrit 39.8 % (37.0-47.0); Hemoglobin 13.2 g/dL (12.0-15.0); Immature Granulocyte Absolute 0.03 K/mm3 (0.00-0.031); Immature Granulocyte Percent A 0.3 % (0-0.5); Lymphocytes Percent Auto 29.9 % (18.3-44.2); Mean Corpuscular HGB Conc 33.2 g/dl (32-36); Mean Corpuscular Hemoglobin 30.3 pg (26-34); Mean Corpuscular Volume 91.5 fl (80-100); Mean Platelet Volume 9.2 fl (7.4-10.4); Monocytes Absolute Auto 0.7 K/mm3 (0.1-0.6); Monocytes Percent Auto 6.8 % (2.6-8.5); Neutrophils Absolute Auto 6.4 K/mm3 (1.3-6.7); Neutrophils Percent Auto 59.8 % (45.5-73.1); Platelet Count Result 344 k/mm3 (150-375); Red Blood Count 4.35 M/mm3 (4.2-5.4); White Blood Count 10.7 K/mm3 (4.5-10.0)
[2023-06-04 22:10] LABS: Alanine Aminotransferase 28 U/L (6-35); Albumin Level 4.5 g/dL (3.5-5.1); Alkaline Phosphatase 87 U/L (38-126); Anion Gap 7 mmol/L (8-16); Aspartate Amino Transferase 34 U/L (14-36); Bilirubin,Total 0.3 mg/dL (0.2-1.3); Blood Urea Nitrogen 18 mg/dL (7-17); Carbon Dioxide 27 mmol/L (22-30); Chloride 106 mmol/L (98-107); Estimated CRCL calculation 108 ml/min; Estimated Glomerular Filt Rate > 60; Glucose 87 mg/dL (65-110); Potassium 3.7 mmol/L (3.4-5.0); Sodium 140 mmol/L (137-145)
[2023-06-04] MEDS: predniSONE 20 MG TABLET 60 MG PO ×2 (22:44)
[2023-06-04 22:48] VITALS: BP 106/58; PULSE 86; RESP 16; O2SAT 98
== END 2023-06-04 22:49 | disposition home or self-care (01) ==
PROVIDERS: Emergency Provider Physician Assistant
DX: G35 Multiple sclerosis (principal); F17.210 Nicotine dependence, cigarettes, uncomplicated
CPT/HCPCS: 36415; 80053; 85025; 99283; J7512

== ENCOUNTER 2023-06-10 11:34 | Emergency (ER) | payer OTHER, SELFPAY ==
[2023-06-10 11:53] VITALS: BP 120/85; PULSE 94; RESP 16; TEMP 36.4; O2SAT 100
--- NOTE | 2023-06-10 15:38 | PC.NURSE ---
once to the room for assessment pt decided that since we do not provide MRI in the ED they did not want to be seen anymore. vitals WNL and the provider never saw the pt. pt stated they wanted to go to a bigger hospital to receive the MRI. offered pt a referral and resources.
== END 2023-06-10 15:55 | disposition left against medical advice (07) ==
DX: G35 Multiple sclerosis (principal)
CPT/HCPCS: 99199

== ENCOUNTER 2023-06-17 09:36 | Observation (INO) | payer OTHER, SELFPAY ==
[2023-06-17] VITALS (7 sets, daily range): BP systolic 96–106; BP diastolic 58–80; PULSE 75–100; RESP 16–20; TEMP 36.8–36.9; O2SAT 97–100; BMI 25.0
--- NOTE | ~2023-06-17 | MR_ITS ---
MRI of the cervical spine Clinical History: Multiple sclerosis Technique: Axial T2-weighted and gradient images, and sagittal T1-weighted, T2-weighted, and STIR seema ges were acquired. Following intravenous administration of 14 cc MultiHance gadolinium, T1-weighted f at-sat imaging was performed in the axial and sagittal planes. Findings: There is no fracture or subluxation of the cervical spine. Vertebral bodies maintain normal height and alignment. No bone marrow signal abnormality seen. No disc bulge or herniation seen at any cervical level. There is no spinal canal stenosis, cord compr ession, or neural foraminal narrowing at any cervical level. There are several amorphous T2 hyperintense intramedullary spinal cord lesions, most notably at the l eft side of the cord at C4, more centrally in the cord at C5-C6, and in the right side of the cord at C6. No abnormal postcontrast enhancement identified. Paravertebral soft tissues are unremarkable. Impression: At least 3 hyperintense intramedullary spinal cord lesions, as detailed above, consistent with demyel inating lesions of multiple sclerosis. No enhancing lesion identified. Reviewed, dictated and finalized at location M. Impression: At least 3 hyperintense intramedullary spinal cord lesions, as detailed above, consistent with demyelinating lesions of multiple sclerosis. No enhancing lesio n identified.
--- NOTE | ~2023-06-17 | MR_ITS ---
MRI of the thoracic spine Clinical History: Multiple sclerosis Technique: Axial T2-weighted and gradient images, and sagittal T1-weighted, T2-weighted, and STIR seema ges were acquired. Following intravenous administration of 14 cc MultiHance gadolinium, T1-weighted f at-sat imaging was performed in the axial and sagittal planes. Findings: There is no fracture or subluxation of the thoracic spine. Vertebral bodies maintain normal height and alignment. No bone marrow signal abnormality seen. There is no disc bulge or herniation at any thoracic level. No spinal canal stenosis or cord compress ion identified. No epidural mass or collection seen. No definite signal abnormality seen in the thoracic spinal cord. No abnormal postcontrast enhancement identified. Paravertebral soft tissues are unremarkable. Impression: Unremarkable exam. Reviewed, dictated and finalized at [facility]. Impression: Unremarkable exam.
--- NOTE | ~2023-06-17 | MR_ITS ---
MRI of the brain Clinical History: Multiple sclerosis Technique: Axial and sagittal T1-weighted images were acquired. These were followed by axial T2-weigh lashell, diffusion weighted, gradient, and FLAIR images. Following intravenous administration of 14 cc Mu ltiHance gadolinium, T1-weighted fat-sat imaging was performed in the axial, coronal, and sagittal pl anes. Findings: There is no acute infarct, intracranial hemorrhage, or mass lesion. There are multiple smal l focal FLAIR hyperintense lesions in the periventricular white matter, several which demonstrate rad ial orientation. Ventricles and subarachnoid spaces are unremarkable. Orbits are unremarkable. Paranasal sinuses and m astoid air cells are clear. Major intracranial flow voids are intact. Sagittal midline structures are intact. No abnormal postcontrast enhancement identified. IMPRESSION: Multiple small FLAIR hyperintense white matter lesions, as detailed above, consistent with demyelinat ing lesions of multiple sclerosis. No active/enhancing plaque identified. Reviewed, dictated and finalized at location . IMPRESSION: Multiple small FLAIR hyperintense white matter lesions, as detailed above, cons istent with demyelinating lesions of multiple sclerosis. No active/enhancing pl aque identified.
--- NOTE | 2023-06-17 12:36 | ED.GENADULT ---
HPI - General Adult General Chief complaint: Unspecified Stated complaint: MS relapse Time Seen by Provider: 06/17/23 12:18 History of Present Illness HPI narrative: Patient is a 32-year-old female with a history of MS presenting with concerns for MS flare. Patient states that she has been having issues with follow-up with her neurologist at [facility]. States that she had a baby approximately 4 months ago and since that time she has had intermittent but worsening sensory symptoms in her extremities. States that it stated with a numb left heel. States that there were no other parts of both of her feet that go numb and she experiences electric shocklike sensations. States this also happens in her hands. States that she has had a lot of pain in her left eye and now her vision in this eye is affected by a hazy filmlike quality. States that she was seen here a couple of weeks ago and started on steroids. Admission was recommended but patient could not find other childcare so she had to go home for her son. She denies any recent infectious symptoms. No other complaints. Related Data Home Medications Medication Instructions Recorded Confirmed valacyclovir 500 mg tablet 500 mg PO DAILY 11/17/22 06/17/23 sertraline 25 mg tablet 25 mg PO DAILY 06/17/23 06/17/23 Allergies Allergy/AdvReac Type Severity Reaction Status Date / Time No Known Allergies Allergy Verified 06/10/23 11:55 Review of Systems Review of Systems: All systems reviewed & are unremarkable except as noted in HPI and below PMFSH Past Medical History Medical History Multiple sclerosis Surgical History Surgical History History of Family History Family History Father Vitiligo Cancer Went to component design engineer and had a tumor removed from neck and follow up with chemotherapy. Thyroid disease Grandparent Heart disease Parkinsons Cerebrovascular accident Mother Graves disease Social History Social History Social History: Currently lives alone with child. Significant other stays with them frequently. Surrogate decision maker: Rojas Lazcano (partner). Years smoked: 22 Smoking status: Current every day smoker Tobacco type: cigarettes Alcohol intake: current Drinks per week: 1 Substance use: current Substance use type: marijuana Last use: 01/19/23 Lack of Transportation: No Lack of Food: Never True Current Housing: I Have Housing Concerned About Future Housing: No Difficulty Paying Gas/Electric Bills: No Difficulty Paying for Meds: No Currently Unemployed: No Education: Associate Degree Difficulty w/ Childcare or Family Care: No Spiritual care concerns: No Exam Narrative: GENERAL: Well-appearing and in no acute distress. Pleasant and cooperative HEAD: Normocephalic, atraumatic. EYES: PERRLA and EOMI. ENT: Mucous membranes moist. NECK: Supple. CHEST: Clear to auscultation. No respiratory distress. HEART: Regular rate and rhythm ABDOMEN: Soft, nondistended EXTREMITIES: Normal range of motion. No edema. SKIN: Warm, dry, no rash. NEURO: Sensation is grossly intact, 5 out of 5 strength in all extremities, pain with EOMI PSYCH: Normal mood and affect. Course Vital Signs Vital signs: Vital Signs Temperature 98.4 F 06/17/23 09:39 Pulse Rate 100 06/17/23 09:39 Respiratory Rate 20 06/17/23 09:39 Blood Pressure 104/80 06/17/23 09:39 Pulse Oximetry 100 06/17/23 09:39 Oxygen Delivery Room Air 06/17/23 09:39 Temperature 97.3 F L 06/18/23 14:01 Pulse Rate 73 06/18/23 14:01 Respiratory Rate 16 06/18/23 14:01 Blood Pressure 102/57 L 06/18/23 14:01 Pulse Oximetry 99 06/18/23 14:01 Oxygen Delivery Room Air 06/18/23 08:00 Medical Decision M
[2023-06-17 12:56] LABS: Basophils Absolute Auto 0.1 K/mm3 (0.0-0.1); Basophils Percent Auto 0.5 % (0.2-1.2); Eosinophils Absolute Auto 0.3 K/mm3 (0-0.3); Eosinophils Percent Auto 2.5 % (0-4.4); Hemoglobin 13.4 g/dL (12.0-15.0); Immature Granulocyte Absolute 0.03 K/mm3 (0.00-0.031); Immature Granulocyte Percent A 0.3 % (0-0.5); Lymphocytes Absolute Auto 2.61 K/mm3 (0.9-3.2); Lymphocytes Percent Auto 25.8 % (18.3-44.2); Mean Corpuscular HGB Conc 32.7 g/dl (32-36); Mean Corpuscular Hemoglobin 30.6 pg (26-34); Mean Corpuscular Volume 93.6 fl (80-100); Mean Platelet Volume 9.2 fl (7.4-10.4); Monocytes Absolute Auto 0.7 K/mm3 (0.1-0.6); Monocytes Percent Auto 6.9 % (2.6-8.5); Neutrophils Absolute Auto 6.5 K/mm3 (1.3-6.7); Platelet Count Result 333 k/mm3 (150-375); Red Blood Count 4.38 M/mm3 (4.2-5.4); Red Cell Distribution Width 13.1 % (11.5-14.5); White Blood Count 10.1 K/mm3 (4.5-10.0)
[2023-06-17 13:05] LABS: Alanine Aminotransferase 25 U/L (6-35); Albumin Level 4.7 g/dL (3.5-5.1); Alkaline Phosphatase 71 U/L (38-126); Anion Gap 7 mmol/L (8-16); Aspartate Amino Transferase 23 U/L (14-36); Bilirubin,Total 0.3 mg/dL (0.2-1.3); Blood Urea Nitrogen 12 mg/dL (7-17); Calcium 9.1 mg/dL (8.4-10.2); Carbon Dioxide 27 mmol/L (22-30); Chloride 105 mmol/L (98-107); Estimated CRCL calculation 127 ml/min; Estimated Glomerular Filt Rate > 60; Glucose 88 mg/dL (65-110); Potassium 3.5 mmol/L (3.4-5.0); Sodium 139 mmol/L (137-145)
[2023-06-17] MEDS: methylPREDNISolone SOD SUCC 500 MG in DEXTROSE 5% 100 ML 200 MG IVPB (15:01)
--- NOTE | 2023-06-17 15:45 | ADMGEN ---
This patient, Jade Sanchez, was admitted to Medical Room 248-. Patient/family oriented to hospital policies and general routines including ID bracelet, bed and alarms, visiting hours, pain management, procedures, bathroom and other care routines, personal items, smoking policy, room service/diet, and visiting hours. Information on how to activate the Rapid Response Team has been discussed. Patient/Family are encouraged to report perceived risks to care and to ask questions if they do not understand what they are told or what they should do.
--- NOTE | 2023-06-17 17:41 | PM.IMHP ---
H&P: HPI History of Present Illness Date/Time: 06/17/23 17:41 Chief Complaint: Numbness, Vision Changes Narrative: 32 y/o F presents here with worsening paraesthesias and L eye visual changes with PMH of MS. patient presents here with worsening numbness and visual disturbance (L). patient reports that she has been off her MS medication due to recent , 4 months . attempted to contact her neurologist to restart her medication, however was unable to restart due to abnormal testing (+for virus that is contraindicated with natalizumab). patient reports that her symptoms started during her . initially she had left heel numbness that was attributed to her /pressure on nerves. however, heel numbness persisted after she delivered her son. Now also having numbness in her fingers, feels she is dropping things more often (L<R), LLE feels 20 lbs. heavier than the RLE, and pain behind her left eye that worsens with light/eye movements. describes vision change to left eye as if there is a white haze/smog, no changes to her visual turcios, and is accompanied by pain with eye movement. Review of Systems Review of Systems: All systems reviewed & are unremarkable except as noted in HPI and below PMFSH Past Medical History Medical History Multiple sclerosis Surgical History Surgical History (Updated 06/17/23 @ 17:52 by Vanessa Mason APRN) History of Family History Family History Father Vitiligo Cancer Went to pulpwood contractor and had a tumor removed from neck and follow up with chemotherapy. Thyroid disease Grandparent Heart disease Parkinsons Cerebrovascular accident Mother Graves disease Social History Social History (Updated 06/17/23 @ 17:56 by Vanessa Mason APRN) Social History: Currently lives alone with child. Significant other stays with them frequently. Surrogate decision maker: Rojas Mendozavach (partner). Years smoked: 22 Smoking status: Current every day smoker Tobacco type: cigarettes Alcohol intake: current Drinks per week: 1 Substance use: current Substance use type: marijuana Last use: 01/19/23 Lack of Transportation: No Lack of Food: Never True Current Housing: I Have Housing Concerned About Future Housing: No Difficulty Paying Gas/Electric Bills: No Difficulty Paying for Meds: No Currently Unemployed: No Education: Associate Degree Difficulty w/ Childcare or Family Care: No Spiritual care concerns: No Meds Home Medications and Allergies Home Medications Medication Instructions Recorded Confirmed Type valacyclovir 500 mg tablet 500 mg PO DAILY 11/17/22 06/17/23 History ibuprofen 600 mg tablet 600 mg PO Q6H PRN Cramping #60 tabs 01/27/23 06/17/23 Rx sertraline 25 mg tablet 25 mg PO DAILY 06/17/23 06/17/23 History Allergies Allergy/AdvReac Type Severity Reaction Status Date / Time No Known Allergies Allergy Verified 06/10/23 11:55 Vital Signs Vital Signs - 24 hr 06/17/23 09:39 06/17/23 13:07 06/17/23 14:33 Temperature 98.4 F Pulse Rate 100 84 75 Respiratory Rate 20 18 18 Blood Pressure 104/80 105/76 106/59 L Pulse Oximetry 100 99 100 Oxygen Delivery Room Air 06/17/23 16:08 06/17/23 16:11 Temperature 98.3 F 98.3 F Pulse Rate 75 Respiratory Rate 16 16 Blood Pressure 96/58 L 96/58 L Pulse Oximetry 99 99 Oxygen Delivery Exam Const: General: comfortable and no acute distress HENMT: Face/Nose/Sinus: Normal nares present Mouth: Yes moist mucous membranes Eyes: General: appearance normal, both eyes and all related structures Sclera: sclerae normal Pupils: Equal, round and reactive pupils present Other: afferent pupillary reflex abnormal on R (light shone on L), repeated x2 and abnormal at beginning of exam. Repeated x2 at end of exam and normal bilat
[2023-06-18 05:31] VITALS: BP 118/65; PULSE 90; RESP 16; TEMP 36.5; O2SAT 99
--- NOTE | 2023-06-18 08:07 | PM.IMPN ---
Progress Note: A&P Assessment and Plan (1) Multiple sclerosis: Code(s): G35 - Multiple sclerosis Status: Acute Assessment and Plan: Presented to the ED with complaints of numbness, and visual distrubance Recently stopped her MS medications related to recent Brain MRI FLARI hyperintense white matter lesions, consistent with demyelinating lesions of MS Cervical MRI 3 lesions intramedullary spinal cord lesions consistent with demyelinating lesions of MS Thoracic MRI no acute findings Neurology consulted Continue solumedrol 1000mg IV daily for 5 days Await further recommendations from neuro Time Spent With Patient Time: 43 minutes Time with patient: Greater than 35 minutes Subjective Date/time seen: 06/18/23 08:07 Interval history: 06/18/23 06/17/23? 17:41 32 y/o F presents here with worsening paraesthesias and L eye visual changes with PMH of MS. patient presents here with worsening numbness and visual disturbance (L).? patient reports that she has been off her MS medication due to recent , 4 months .? attempted to contact her neurologist to restart her medication, however was unable to restart due to abnormal testing (+for virus that is contraindicated with natalizumab).? patient reports that her symptoms started during her . initially she had left heel numbness that was attributed to her /pressure on nerves.? however, heel numbness persisted after she delivered her son.? Now also having numbness in her fingers, feels she is dropping things more often (L<R), LLE feels 20 lbs. heavier than the RLE, and pain behind her left eye that worsens with light/eye movements.? describes vision change to left eye as if there is a white haze/smog, no changes to her visual turcios, and is accompanied by pain with eye movement. Review of Systems Review of Systems: All systems reviewed & are unremarkable except as noted in HPI and below Exam Narrative: General: well-nourished, ill-appearing 32-year-old female, sitting up in bed, comfortable, NARD Neuro: awake, alert and oriented x4, speech clear, no focal neuro deficits noted HEENMT: normocephalic, atraumatic, EOMI, sclerae anicteric, moist oral mucosa Respiratory: Clear to auscultation bilaterally without crackles, rhonchi or wheezes, nonlabored breathing Cardio: regular rate, regular rhythm with S1-S2 Abdomen: nondistended, normoactive bowel sounds, soft, nontender to palpation Extremities: no edema, erythema, or tenderness to palpation, DP pulses 2+ bilaterally Skin: no rashes or lesions, warm and dry Psych: appropriate mood and affect, judgment and insight intact Objective Data Vital Signs Vital Signs: Vital Signs - 24 hr 06/17/23 09:39 06/17/23 13:07 06/17/23 14:33 Temperature 98.4 F Pulse Rate 100 84 75 Respiratory Rate 20 18 18 Blood Pressure 104/80 105/76 106/59 L Pulse Oximetry 100 99 100 Oxygen Delivery Room Air 06/17/23 16:08 06/17/23 20:54 06/18/23 05:31 Temperature 98.3 F 98.5 F 97.7 F Pulse Rate 75 83 90 Respiratory Rate 16 18 16 Blood Pressure 96/58 L 106/58 L 118/65 Pulse Oximetry 99 97 99 Oxygen Delivery 06/17/23 22:34 06/17/23 16:11 Temperature 98.3 F Pulse Rate Respiratory Rate 16 Blood Pressure 96/58 L Pulse Oximetry 99 99 Oxygen Delivery Room Air Intake/Output Intake/Output: Intake & Output 06/15/23 06/16/23 06/17/23 06/18/23 23:59 23:59 23:59 23:59 Intake Total 560 1050 Balance 560 1050 Meds/Results Medications: Active Medications Generic Name Dose Route Start Last Admin Trade Name Freq PRN Reason Stop Dose Admin Sertraline HCl 25 mg 06/18/23 09:00 Sertraline Hcl 25 Mg Tablet PO DAILY [facility] Radiology Results: ITS Impressions Brain MRI 06/18/23 07:40 IMPRESSION: Multiple small FLAIR hyperintense white matter lesions, as detailed above, consistent with demyelinating lesions of multiple scler
[2023-06-18] MEDS: SERTRALINE HCL 25 MG TABLET PO (09:12)
--- NOTE | 2023-06-18 10:45 | PM.DS ---
DS: Admitting Diagnosis Discharge Date 06/18/23 1100 Admitting Diagnosis MS flair DS: Discharge Diagnosis Discharge Diagnosis (1) Multiple sclerosis: Code(s): G35 - Multiple sclerosis Status: Acute Assessment and Plan: Presented to the ED with complaints of numbness, and visual distrubance Recently stopped her MS medications related to recent Brain MRI FLARI hyperintense white matter lesions, consistent with demyelinating lesions of MS Cervical MRI 3 lesions intramedullary spinal cord lesions consistent with demyelinating lesions of MS Thoracic MRI no acute findings Neurology consulted Continue solumedrol 1000mg IV daily for 5 days Await further recommendations from neuro DS: Summary Hospital Course Hospital Course: Patient is a 32-year-old female with a past medical history MS who presented to the ED with complaints of worsening numbness and visual disturbances on the left. Patient recently had a child and was off her medications for suppression. She stated that she has been trying to get her neurologist however has been unsuccessful. Patient was started on IV Solu-Medrol. MRI of the brain showed hyperintense white matter lesions consistent with demyelinating lesions of MS. Cervical MRI showed 3 lesions of intermittent do leery spider cord lesions consistent with demyelination and MS. Thoracic MRI would had no acute findings. Neurology had seen the patient and is recommending p.o. steroids for home. Patient did receive 1 bag of IV steroids. Patient did states she was feeling better. She denies any current chest pain, shortness a breath, nausea, vomiting, diarrhea constipation. She does still have some visual changes in the left and left hand tingling. MRI of the orbits for the left eye had been ordered however was unable to be obtained due to patient receiving contrast this morning. Neurology was made aware. Will have patient follow-up with her neurologist. Currently patient is stable for discharge for labs and vital signs. Collaborate with Neurology about plan of care Status at Discharge Functional status at discharge: independent ambulation Overall status at discharge: patient is progressing back to baseline Time Spent with Patient Time attestation: Total time spent providing and/or coordinating discharge services: 51 minutes Time spent: Greater than 30 minutes Specific discharge activities: Diagnostic testing, chart review, developing a treatment plan, education, care coordination documentation, physical exam, result review Exam Narrative: General: well-nourished, ill-appearing 32-year-old female, sitting up in bed, comfortable, NARD Neuro: awake, alert and oriented x4, speech clear, no focal neuro deficits noted HEENMT: normocephalic, atraumatic, EOMI, sclerae anicteric, moist oral mucosa Respiratory: Clear to auscultation bilaterally without crackles, rhonchi or wheezes, nonlabored breathing Cardio: regular rate, regular rhythm with S1-S2 Abdomen: nondistended, normoactive bowel sounds, soft, nontender to palpation Extremities: no edema, erythema, or tenderness to palpation, DP pulses 2+ bilaterally Skin: no rashes or lesions, warm and dry Psych: appropriate mood and affect, judgment and insight intact DS: Data Data Completed and Pending Labs on day of discharge: Labs from last 24 hours 06/17/23 12:50 WBC 10.1 H RBC 4.38 Hgb 13.4 Hct 41.0 MCV 93.6 MCH 30.6 MCHC 32.7 RDW 13.1 Plt Count 333 MPV 9.2 Immature Gran % (Auto) 0.3 Neut % (Auto) 64.0 Lymph % (Auto) 25.8 Mobile % (Auto) 6.9 Eos % (Auto) 2.5 Baso % (Auto) 0.5 Lymph # (Auto) 2.61 Mobile # (Auto) 0.7 H Eos # (Auto) 0.3 Baso # (Auto) 0.1 Abs Immat Gran (auto) 0.03 Absolute Neuts (auto) 6.5 Absolute Nucleated RBC 0.0 Nucleated RBC % 0.0 Sodium 139 Potassium 3.5 Chloride 105 Carbon Dioxide 27 Anion Gap 7 L BUN 12 D Creatinine 0.50 L Estim Creat Clear Calc
--- NOTE | 2023-06-18 11:39 | WPDNEURCNPN ---
Assessment and Plan Assessment and plan (1) Optic neuritis: Code(s): H46.9 - Unspecified optic neuritis Status: Acute (2) Multiple sclerosis: Code(s): G35 - Multiple sclerosis Status: Acute Plan Patient with a history of RRMS presenting with pain in the left eye with visual disturbance for the past two weeks. MRI of brain/cervical/thoracic spine are negative for acute flare, but there is evidence of L APD on exam, which correlates with the symptoms of optic neuritis. Unfortunately, unable to obtain MRI of the orbit today because patient already received contrast today. We discussed doing inpatient steroids for the next 3-4 days, but patient is requesting to be discharged due to issues with childcare. I am not sure how beneficial the steroids will be since it has already been a few weeks since the onset of her symptoms, but she does report improvement today, so would be worth continuing the full course. - Patient agreeable to take prednisone 625mg q 12 hrs x 8 more doses - Followed by steroid taper -- 60mg daily x 4 days, then 40mg daily x 4 days, then 20mg daily x 4 days, then discontinue - Patient to follow-up with her Neurologist as outpatient. Consult date: 06/18/23 Reason for consult: MS exacerbation HPI: Jade Sanchez is a 32 year old female with a history of RRMS presenting due to visual concerns. Patient has had a history of MS for the past five years and follows with a Neurologist through [facility]. She had been taking Tysabri until she became last year. She had her baby five months ago, and since then has had several neurological complaints including intermittent LUE numbness, mostly distal, and LLE weakness (feels that her left leg is 20 lb heavier). A few weeks ago, she started having pain with movement of her left eye as well as feeling like her vision was hazy in the left eye as well. Patient denies any prior history of optic neuritis on either eye but did mention that when she was diagnosed about five years ago, there appeared to be involvement of the right optic nerve, although she did not have any visual symptoms at the time. 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 Her Neurologist had decided on Kesimpta, but there have been some issues with getting the medication covered. Patient denies any changes with her speech, swallow, breathing. She denies any new urinary symptoms. MRI brain with and without contrast showed multiple small FLAIR hyperintesnse white matter lesions, without any contrast enhancement. MRI of the cervical spine showed 3 hyperintense lesions involving C4-C6 without any contrast enhancement. MRI of the thoracic spine was normal. Patient reports that she had her last MRI done after she delivered. Patient was started on solumedrol last night. She feels that her eye pain is better. She does not feel weakness in the left leg. Review of Systems Constitutional: Constitutional: Denies chills, Denies fever(s) and Denies weight loss Eyes: Eyes: Denies diplopia, Denies loss of vision and Reports photophobia Comments: haziness of vision in the left eye no color blindness ENT: Denies dizziness, Denies hearing loss and Denies tinnitus Cardiovascular: Cardiovascular: Denies chest pain, Denies syncope and Denies dyspnea Respiratory: Respiratory: Denies cough, Denies dyspnea and Denies wheezing Gastrointestinal: Gastrointestinal: Denies abdominal pain, Denies change in bowel habits and Denies vomiting Genitourinary: Genitourinary: Denies urinary incontinence Musculoskeletal: Musculoskeletal: Denies arthralgias and Denies joint swelling Integumentary/Breasts: Skin/Breast: Denies new lesions and Denies rash Neurologic: Reports as per HPI, Denies dizziness, Denies syncope and Denies loss of vision Psychiatric: Psychiatric: Denies anxiety and Denies depression Endocrine: Endocrine: Denies cold intolerance and Denies heat intolerance Jesus
[2023-06-18] MEDS: predniSONE 20 MG TABLET PO (12:22)
[2023-06-18] MEDS: predniSONE 50 MG TABLET 600 MG PO (12:22)
[2023-06-18] MEDS: predniSONE 5 MG TABLET PO (12:23)
[2023-06-18 12:58] LABS: Appearance Urine Cloudy (Clear); Bacteria Urine 4+ /hpf; Bilirubin Urine Negative (Negative); Blood Urine Negative (Negative); Color Urine Yellow (Yellow); Glucose Urine UA Negative (Negative); Ketones Urine Negative (Negative); Leukocyte Esterase Ur 1+ LEU/UL (Negative); Need Manual Microscopic Reviewed; Nitrate Urine Negative (Negative); Non Pathogenic Casts 0-2; Protein Urine Negative (Negative); Specific Grav Ur 1.013 (1.001-1.035); Squamous Epithelial Cell Urine None seen /hpf (Few); Urobilinogen Urine 0.2 mg/dL (<2.0); WBC Urine 21-50 /hpf
[2023-06-18 12:59] LABS: Add Urine Microscopic? YES
[2023-06-18 14:01] VITALS: BP 102/57; PULSE 73; RESP 16; TEMP 36.3; O2SAT 99
== END 2023-06-18 14:30 | disposition home or self-care (01) ==
LOC: ANHED 12:25 → ANH2MED 16:11
PROVIDERS: Nurse Practitioner; Admitting Provider Student in an Organized Health Care Education/Training Program; Emergency Provider Emergency Medicine; PCP Emergency Medicine; Visit Provider Chiropractor
DX: G35 Multiple sclerosis (principal); H46.9 Unspecified optic neuritis; F17.210 Nicotine dependence, cigarettes, uncomplicated
CPT/HCPCS: 36415; 70553; 72156; 72157; 80053; 81001; 85025; 87077; 87086; 87088; 87186; 96365; 99285; A9270; A9577; G0378; G0379; J2930; J7512

== ENCOUNTER 2024-01-07 09:30 | Outpatient (RCR) | payer OTHER, SELFPAY ==
--- NOTE | 2023-12-14 15:49 | OTOPEVAL1 ---
Assessment and note entered by Trae Campos, AUDREY/April, CHT Evaluation Information 12/14/23 Diagnosis Pain in right wrist, carpal tunnel syndrome right UE Subjective Information Patient reports onset of wrist pain ~10 months ago after she tried to move a heavy piece of furniture. She reports functional limitations with putting weight through an extended wrist or lifting her son who is 28 lbs. Feels like the wrist has some popping and discomfort with particular movements. Points to the dorsal radial side of the wrist. Reported Pain Level Pain Score 4: Self Report Assessment OT Clinical Summary Patient referred to OT with right wrist pain that has been limiting her ability to lift her son and bear weight through an extended wrist. She presents with signs and symptoms of intersection syndrome - pain with resisted thumb and finger extension. She has difficulties with loading the wrist in an extended position and completing any heavy lifting without the use of her left hand. Skilled OT indicated for splinting, use of modalities, HEP instruction and progression, and therapeutic exercise to facilitate reduced pain and improved strength of the right wrist. Plan of Care Interventions Therapeutic Exercise,Manual Therapy,Therapeutic Activities,Hot Pack/Cold Pack,Ultrasound,Paraffin OT Services Indicated Yes Treatment Frequency and 1x/week for 4 visits Duration These treatments will address the objective and functional deficits as defined above. The patient will be advanced safely and appropriately in order for the patient to progress towards his/her prior level of function. Additional exercises will be introduced and as well as a comprehensive home exercise program upon discharge, if needed, ?to ensure carryover of functional gains achieved in the clinic. This treatment plan has been reviewed and agreement upon by the patient.
--- NOTE | 2023-12-14 15:49 | OPREHPOC ---
Outpatient Therapy Plan of Care This is a Multidisciplinary Plan of Care that may contain components documented by all disciplines (PT, OT, and ST.) OT Problem 1 OT Problem #1 Knowledge Deficit OT Goal 1 Goal 1. Patient to be independent with instructed materials. Target Visit 5 OT Problem 2 OT Problem #2 Pain OT Goal 1 Goal 1. Patient to report no wrist pain with lifting her son. Target Visit 5 OT Problem 3 OT Problem #3 Impaired Strength OT Goal 1 Goal 1. Patient to be able to complete gross wrist strengthening in all planes with 2 lb. free weight x20 reps. 2. Patient to be able to complete gross apprentice instrument technician/pinch strengthening with red theraputty x5 minutes without pain. Target Visit 5
--- NOTE | 2023-12-23 09:13 | PCOTNOTE ---
Patient did not show up for scheduled appointment this date. Called patient and left voicemail informing her of her missed appointment and reminded her of her next appointment.
--- NOTE | 2024-01-06 10:09 | PCOTNOTE ---
Patient contacted after 15 minutes past appointment time. Patient did not answer and voicemail was left for patient to return call in attempts to reschedule.
--- NOTE | 2024-01-18 14:51 | OTOPDC ---
Assessment and note entered by Trae Campos, AUDREY/April, CHT OT Discharge Notification 01/18/24 OT Clinical Summary Patient referred to OT with right wrist pain that began ~10 months ago after she tried to move a heavy piece of furniture. She reports functional limitations with putting weight through an extended wrist or lifting her son who is 28 lbs. OT has trialed splinting, ROM, modalities, and strengthening. She reports therapy is making the pain worse unfortunately. She did not show to her therapy reassessment appointment, so no formal assessment was completed. She wishes to be discharged at this time.
== END 2024-01-26 08:42 | disposition home or self-care (01) ==
LOC: ANHOT 09:30
PROVIDERS: PCP Emergency Medicine; Visit Provider Emergency Medicine
DX: M25.531 Pain in right wrist (principal); G56.01 Carpal tunnel syndrome, right upper limb
CPT/HCPCS: 97018; 97110; 97140; 97165; 99199; L3906

== ENCOUNTER 2024-09-23 16:32 | Emergency (ER) | payer OTHER, SELFPAY ==
[2024-09-23 16:43] VITALS: BP 138/85; PULSE 114; RESP 20; TEMP 36.8; O2SAT 100
[2024-09-23 17:59] VITALS: RESP 17; O2SAT 98
[2024-09-23 18:02] VITALS: BP 114/49; PULSE 81; RESP 17; O2SAT 98
--- NOTE | 2024-09-23 18:23 | ED_ITS ---
HPI - General Adult General Chief complaint: Recheck/Abnormal Lab/Rx Stated complaint: MS flare up Time Seen by Provider: 09/23/24 17:48 History of Present Illness HPI narrative: 33-year-old female with history of MS presents emergency department complaining of increased lower extremity numbness. Patient states symptoms started approximately 5 days ago. Patient had previously followed up with at [facility] and Greg and patient states she is going to follow up with Dr[facility] and had a brain MRI and they were going to admit her for IV steroids but patient preferred to have p.o. steroids and ultimately patient signed out AMA and presented to our emergency department. Patient prefers not to be transferred to [facility]. Patient cannot be admitted at [facility] since there are no neurologist on-call. Related Data Allergies Allergy/AdvReac Type Severity Reaction Status Date / Time No Known Allergies Allergy Verified 09/23/24 16:51 Review of Systems Review of Systems: All systems reviewed & are unremarkable except as noted in HPI and below PMFSH Past Medical History Medical History Multiple sclerosis Surgical History Surgical History History of Family History Family History Father Vitiligo Cancer Went to special duty nurse and had a tumor removed from neck and follow up with chemotherapy. Thyroid disease Grandparent Heart disease Parkinsons Cerebrovascular accident Mother Graves disease Social History Social History Social History: Currently lives alone with child. Significant other stays with them frequently. Surrogate decision maker: Rojas Lazcano (partner). Years smoked: 22 Smoking status: Current every day smoker Tobacco type: cigarettes Alcohol intake: current Drinks per week: 1 Substance use: current Substance use type: marijuana Last use: 01/19/23 Lack of Transportation: No Lack of Food: Never True Current Housing: I Have Housing Concerned About Future Housing: No Difficulty Paying Gas/Electric Bills: No Difficulty Paying for Meds: No Currently Unemployed: No Education: Associate Degree Difficulty w/ Childcare or Family Care: No Spiritual care concerns: No Exam Narrative: APPEARANCE: Well appearing, no pain, no distress, well-nourished. HEAD: normocephalic, atraumatic. EYES: PERRLA/EOMI, conjunctivae clear. NOSE: Normal no drainage EARS:TMS clear with good light reflex. THROAT: Pharynx clear, no exudate. NECK: Supple. No adenopathy, no masses. RESPIRATORY: Airway patent, respirations nonlabored. Clear to auscultation bilaterally, no rales, rhonchi, wheezing. CARDIOVASCULAR: Regular rate and rhythm without murmurs rubs or gallops. ABDOMINAL: Soft, nontender, nondistended, normal bowel sounds MUSCULOSKELETAL: Moves all extremities. Strength/ROM intact, No edema, No calf tenderness. NEURO: Alert. Decreased sensation across feet bilaterally SKIN: Warm, dry. Normal Color Course Vital Signs Vital signs: Vital Signs Temperature 98.2 F 09/23/24 16:43 Pulse Rate 114 H 09/23/24 16:43 Respiratory Rate 20 09/23/24 16:43 Blood Pressure 138/85 09/23/24 16:43 Pulse Oximetry 100 09/23/24 16:43 Oxygen Delivery Room Air 09/23/24 16:43 Temperature 98.2 F 09/23/24 16:43 Pulse Rate 81 09/23/24 18:02 Respiratory Rate 17 09/23/24 18:02 Blood Pressure 114/49 L 09/23/24 18:02 Pulse Oximetry 98 09/23/24 18:02 Oxygen Delivery Room Air 09/23/24 16:43 Medical Decision Making [facility] Narrative Medical decision making narrative: 33-year-old female present to the emergency department for evaluation for lower extremity weakness that started approximately 5 days ago. I discussed the case with the neurologist at [facility] and they recommended transfer. And declined the transfer to any [facility] facility. She declined transferred to [facility] and patient patient cannot be admitted at our facility. Patient opted to leave against medical advice. Patient was alert oriented well-appearing at time of discharge. Vital Signs Vital Signs: Vital Signs Temperature 98.2 F 09/23/24 16:43 Pulse Rate 114 H 09/23/24 16:43 Respiratory Rate 20 09/23/24 16:43 Blood Pressure 138/85 09/23/24 16:43 Pulse Oximetry 100 09/23/24 16:43 Oxygen Delivery Room Air 09/23/24 16:43 Temperature 98.2 F 09/23/24 16:43 Pulse Rate 81 09/23/24 18:02 Respiratory Rate 17 09/23/24 18:02 Blood Pressure 114/49 L 09/23/24 18:02 Pulse Oximetry 98 09/23/24 18:02 Oxygen Delivery Room Air 09/23/24 16:43 Discharge Plan Discharge Clinical Impression: Leg numbness Patient Disposition: Home, Self-Care Condition: Stable Instructions: Antibiotic Form Additional Instructions: You were offered transferred to [facility] for treatment for your MS flare. You declined and preferred to be discharged. I do recommend following up with [facility] or [facility] to continue your IV steroid treatment. Patient Language: [place] Prescriptions: No Action imiquimod 3.75 % cream in packet 1 packet topical QHS Qty: 28 0RF Rx Instructions: Leave on skin for overnight then remove with soap and water in the morning sertraline 25 mg tablet 25 mg PO DAILY Qty: 90 1RF valacyclovir 500 mg tablet 500 mg PO DAILY Qty: 90 1RF Follow-up/Referrals: PHYSICIAN,[facility]ER HELPER [Primary Care Provider] -
== END 2024-09-23 19:04 | disposition home or self-care (01) ==
PROVIDERS: Emergency Provider Emergency Medicine
DX: R20.0 Anesthesia of skin (principal); G35 Multiple sclerosis; F17.210 Nicotine dependence, cigarettes, uncomplicated; Z79.899 Other long term (current) drug therapy
CPT/HCPCS: 99281